=== PATIENT | female | born 1995 | race Caucasian/White ===

== ENCOUNTER 2021-07-18 19:50 | Emergency (ER) | payer OTHER ==
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
[2021-07-18 21:08] VITALS: BP 121/71
== END 2021-07-18 21:07 | disposition home or self-care (01) ==
LOC: ED 19:50
DX: S09.90XA Unspecified injury of head, initial encounter (principal); S16.1XXA Strain of muscle, fascia and tendon at neck level, initial encounter; V49.49XA Driver injured in collision with other motor vehicles in traffic accident, initial encounter; Y92.414 Local residential or business street as the place of occurrence of the external cause
CPT/HCPCS: 99284

== ENCOUNTER 2022-02-06 08:00 | Outpatient (CLI) | payer OTHER | END 2022-02-06 23:59 | LOC: LAB.N 08:00 | PROVIDERS: ATTEND Nurse Practitioner | DX: N39.0 Urinary tract infection, site not specified (principal) | CPT/HCPCS: 87086 ==

== ENCOUNTER 2023-09-03 14:45 | Outpatient (CLI) | payer OTHER | END 2023-09-03 14:46 | disposition home or self-care (01) | LOC: DI 14:45 | PROVIDERS: ATTEND Student in an Organized Health Care Education/Training Program | DX: Q21.10 Atrial septal defect, unspecified (principal); I08.1 Rheumatic disorders of both mitral and tricuspid valves | CPT/HCPCS: 93306 ==